=== PATIENT | male | born 1950 | race Caucasian/White ===

== ENCOUNTER 2016-09-23 07:01 | Emergency (ER) | payer MEDICARE, OTHER ==
[2016-09-23 07:16] VITALS: TEMP 97.7; BMI 27.4
[2016-09-23] MEDS ORDERED: DIPHTHERIA AND TETANUS (ADULT) 0.5 ML SYR IM ONE (07:28)
--- NOTE | 2016-09-23 07:31 | EDPRACDOC ---
<Lakisha Reardon - Last Filed: 09/23/16 09:20> - General Information Information Source: Patient, Family Mode Of Arrival: Car - History of Present Illness HPI: PATIENT STATES HE FELL FROM STANDING LAST NIGHT AND STRUCK RIGHT FOREHEAD. LACERATION TO EYEBROW. FAMILY FOUND HIM THIS MORNING SLUMPED OVER CHAIR. POSSIBLE ETOH. FAMILY FEELS PATIENT IS ALTERED. PATIENT TALKS IN SLUGGISH AND DELAYED SENTENCES. DOES NOT THINK HE HAD LOC. CANNOT REMEMBER LAST TETANUS SHOT. PATIENT IS ON PLAVIX FOR CAD - 3 CARDIAC STENTS Location: Reports: Frontal (RIGHT) Pain Quality: Reports: Mild Relevant History of: Reports: Bleeding diathesis Associated Signs and Symptoms: Denies: Fatigue, Nausea/Vomiting <Janak Colunga - Last Filed: 09/23/16 10:01> - General Information Chief Complaint: Wound Stated Complaint: FALL,HEAD LACERATION Time Seen by Provider: 09/23/16 07:21 Home Medications: Home Medications Clopidogrel Bisulfate [Plavix] 75 mg PO DAILY 02/14/16 Duloxetine HCl [Cymbalta] 60 mg PO DAILY 02/14/16 Metformin HCl 850 mg PO DAILY 02/14/16 Metoprolol Succinate [Toprol Xl] 100 mg PO DAILY 02/14/16 Omeprazole 40 mg PO DAILY 02/14/16 Tamsulosin HCl [Flomax] 0.4 mg PO DAILY 02/14/16 Tramadol HCl [Ultram] 50 mg PO Q8H 02/14/16 Aspirin [Aspirin EC] 81 mg PO DAILY 08/20/16 Clonazepam [Klonopin] 1 mg PO DAILY PRN 08/20/16 Oxycodone HCl [Oxycodone Immediate Release] 15 mg PO TID 08/20/16 Ampicillin 500 mg PO Q8 #15 capsule 08/25/16 Atorvastatin Calcium [Lipitor] 40 mg PO DAILY #30 tablet 08/25/16 Furosemide [Lasix] 20 mg PO DAILY #30 tablet 08/25/16 Isosorbide Mononitrate [Imdur] 90 mg PO 0600 #30 tablet 08/25/16 Lisinopril [Zestril] 5 mg PO BID #30 tablet 08/25/16 Prednisone [Sterapred 5 mg/6 day Uni-Pack] 21 tab PO DIR #1 pack 08/25/16 Ranolazine [Ranexa] 1,000 mg PO BID #60 tablet.er 08/25/16 Cephalexin Monohydrate [Keflex] 250 mg PO Q6H #40 cap 09/23/16 Allergies/Adverse Reactions: Allergies Allergy/AdvReac Type Severity Reaction Status Date / Time No Known Allergies Allergy Verified 08/20/16 10:37 ED Past Medical History - History Reviewed Yes Nurses notes reviewed and agree except as marked Travel Outside of [place] in the Last 3 Months?: No - Patient Medical History Cardiac History: Reports: Coronary Artery Disease, Hypertension, Heart Attack, Cardiac Catheterization, CABG, Hypercholesterolemia, Valvular Heart Disease Respiratory History: Reports: COPD, Cough, Chronic Bronchitis, Pneumonia, Emphysema GI/ History: Reports: Kidney Stones, Gastroesophageal Reflux Musculoskeletal History: Reports: Osteoarthritis Psychological History: Reports: Anxiety. Denies: Depression, Substance Use Disorder Systemic History: Reports: Diabetes (no meds, diet controlled) Surgical History: Reports: CABG, Cardiac Catheterization (STENT X3) - Family Medical History Reports: Hypertension, Diabetes (mother, sister), Cancer (brother), Stroke ( brother), Cardiac Disorders, Respiratory Disorders - Social Medical History Smoking Status: Heavy tobacco smoker (5 or more cigarettes/day or daily pipe/ cigar) Social History: Denies: Substance Use Disorder ETOH: Social Lives With: Family Lives In: Home <Janak Colunga - Last Filed: 09/23/16 10:01> EDM Review of Systems - Review of Systems ROS Negative Except as Marked: Yes All systems reviewed and were negative except as marked Constitutional: No Symptoms Reported. negative: Fever, Chills, Weakness, Fatigue, Loss of Appetite Eyes: No Symptoms Reported. negative: Redness, Blurred Vision, Double Vision, Discharge, Pain, Light Sensitive, Photophobia Ears: No Symptoms Reported. negative: Pain, Hearing Loss, Drainage, Ear Pulling Throat: No Symptoms Reported. negative: Pain, Swelling Nose: No Symptoms Reported. negative: Congestion, Bleeding, Discharge, Injection, Swelling, Deformity, Ecchymosis, Tender, Abrasion, Laceration Mouth: No Symptoms Reported. negative: Pain, Drooling Respiratory: No Symptoms Reported. negative: Cough, Brassy Cough, Barky Cough, Shortness of Breath, Wheezing, Hemoptysis Cardiovascular: No Symptoms Reported. negative: Chest Pain, Palpitations, Syncope, Edema, Orthopnea, PND, Skin Mottling, Cyanosis Gastrointestinal: No Symptoms Reported. negative: Pain, Constipation, Nausea, Vomiting, Diarrhea, Melena, Formula Intolerance Genitourinary: No Symptoms Reported. negative: Dysuria, Hematuria, Frequency, Discharge, Bleeding, Testicular Pain, Neurological: Dizziness, Other (HEAD INJURY). negative: Gait Difficulty, Headache, Numbness, Seizure, Speech Difficulty, Weakness Musculoskeletal: No Symptoms Reported. negative: Neck, Chestwall, Ribs, Back, Shoulder, Arm, Elbow, Forearm, Wrist, Hand, Pelvis, Hip, Femur, Knee, Leg, Ankle , Foot Integumentary: No Symptoms Reported. negative: Itching, Rash, Bruising, Wound Allergic/Immunologic: No Symptoms Reported. negative: Hives, Itching Hematologic: No Symptoms Reported. negative: Lymphadenopathy, Easy Bruising, Easy Bleeding Endocrine: No Symptoms Reported. negative: Weight Gain, Weight Loss Psychiatric: No Symptoms Reported. negative: Anxiety, Depression, Hallucinations, Insomnia, Suicidal <Janak Colunga - Last Filed: 09/23/16 10:01> ED Procedures - Suture/Laceration Suture #1 Right Head Wound Length (cm): 2.0 Wound's Depth, Shape: linear Wound Explored: clean Betadine Prep?: Yes Anesthesia: 1% Lidocaine Volume Anesthetic (ccs): 3 Wound Repaired With: Sutures Suture Size/Type: 4:0, nylon Number of Sutures: 11 <Lakisha Reardon - Last Filed: 09/23/16 09:20> - Physical Exam Last recorded Vital Signs: Last Vital Signs Temp 97.7 F 09/23/16 07:12 Pulse 81 09/23/16 07:12 Resp 18 09/23/16 07:12 BP 167/82 09/23/16 07:12 Pulse Ox 98 09/23/16 07:12 Oxygen Pulse Oxygen Saturation 98 O2 Device Room Air Oxygen Flow Rate Fraction of Inspired Oxygen ( FIO2) <Lakisha Reardon - Last Filed: 09/23/16 09:20> - Physical Exam Constitutional: Alert (Awake), Other (SLUGGISH TO RESPOND) Oriented to: Time, Person, Place Last recorded Vital Signs: Last Vital Signs Temp 97.7 F 09/23/16 07:12 Pulse 81 09/23/16 07:12 Resp 18 09/23/16 07:12 BP 167/82 09/23/16 07:12 Pulse Ox 98 09/23/16 07:12 Oxygen Pulse Oxygen Saturation 98 O2 Device Room Air Oxygen Flow Rate Fraction of Inspired Oxygen ( FIO2) - HEENT Head: Laceration (4 CM LACERATION RIGHT EYE BROW- JAGGED) Eye Exam: Normal (PERRL, EOMI, Sclera white) Oropharynx: Normal (Pharynx:Moist without exudate,Gums-no swelling) Tympanic Membrane: Normal ENT EAC: Normal TMJ: Normal Nose: No Symptoms Reported (septum midline) Neck: Normal (FROM, trachea at midline) - Respiratory/Cardiovascular Respiratory: Normal - CTA (BBS clear to auscultation without adventitious sounds ) Cardiovascular: Normal (RRR without murmur, gallop or rub) - GI Auscultation: Normal (NABS) Palpation: Normal (Soft,No rebound or guarding, non distended) Tenderness: Non tender Robledo's Sign: Negative - Bladder: Normal - Musculoskeletal Back: Normal (Non-Tender) Extremities: Normal (Normal tone, Pulses 2+ No cyanosis or edema, FROM) - Integumentary Skin: Warm, Dry, Other (SEE ABOVE) Lymphatics: Normal (no adenopathy) - Neurologic Memory Impaired: Long-term (SLIGHTLY POOR) Motor Function: Normal (Normal tone, Pulses 2+ No cyanosis or edema, FROM) Cranial Nerve: Normal (CN II-X11 intact sensation, strength 5/5) Cerebellar: Normal Mood Description: Normal Thought: Coherent Perception: Normal <Janak Colunga - Last Filed: 09/23/16 10:01> - Results 09/23/16 07:45 09/23/16 07:45 WBC 5.4 xk/uL (3.8-10.8) 09/23/16 07:45 RBC 3.94 xM/uL (4.70-6.10) L 09/23/16 07:45 Hgb 10.9 g/dL (14.0-18.0) L 09/23/16 07:45 Hct 32.8 % (42-52) L 09/23/16 07:45 MCV 83 fL (80-94) 09/23/16 07:45 MCH 27.7 pg (27-32) 09/23/16 07:45 MCHC 33.3 g/dl (33-36) 09/23/16 07:45 RDW 16.3 % (11.5-14.5) H 09/23/16 07:45 Plt Count 189 xk/uL (130-400) 09/23/16 07:45 MPV 8.5 fL (7.4-10.4) 09/23/16 07:45 Neut % (Auto) 63.6 % (45-76) 09/23/16 07:45 Lymph % (Auto) 23.2 % (17-44) 09/23/16 07:45 [place] % (Auto) 9.7 % (3-10) 09/23/16 07:45 Eos % (Auto) 2.3 % (0-5) 09/23/16 07:45 Baso % (Auto) 1.2 % (0-2) 09/23/16 07:45 Absolute Neuts (auto) 3.40 xk/uL (1.7-8.2) 09/23/16 07:45 Absolute Lymphs (auto) 1.24 xk/uL (0.65-4.75) 09/23/16 07:45 Sodium 136 mEq/L (137-146) L 09/23/16 07:45 Potassium 3.5 mEq/L (3.5-5.1) 09/23/16 07:45 Chloride 98 mEq/L (98-107) 09/23/16 07:45 Carbon Dioxide 27 mMOL/L (22-33) 09/23/16 07:45 Anion Gap 15 mEq/L (8-16) 09/23/16 07:45 BUN 13 MG/DL (9-20) 09/23/16 07:45 Creatinine 1.00 MG/DL (0.66-1.25) 09/23/16 07:45 Estimated GFR (MDRD) > 60 mL/min (>=60) 09/23/16 07:45 Glucose 178 MG/DL (70-99) H 09/23/16 07:45 Calculated Osmolality 266 MOs/Kg (270-290) L 09/23/16 07:45 Calcium 9.1 MG/DL (8.4-10.2) 09/23/16 07:45 Urine Opiates Screen *positive* (NEGATIVE) H 09/23/16 08:07 Ur Oxycodone Screen *positive* (NEGATIVE) H 09/23/16 08:07 Urine Methadone Screen Neg (NEGATIVE) 09/23/16 08:07 Ur Barbiturates Screen Neg (NEGATIVE) 09/23/16 08:07 Ur Tricyclics Screen Neg (NEGATIVE) 09/23/16 08:07 Ur Phencyclidine Scrn Neg (NEGATIVE) 09/23/16 08:07 Ur Amphetamines Screen Neg (NEGATIVE) 09/23/16 08:07 U Methamphetamines Scrn Neg (NEGATIVE) 09/23/16 08:07 Urine MDMA Screen Neg (NEGATIVE) 09/23/16 08:07 U Benzodiazepines Scrn *positive* (NEGATIVE) H 09/23/16 08:07 Urine Cocaine Screen Neg (NEGATIVE) 09/23/16 08:07 Ur THC Screen Neg (NEGATIVE) 09/23/16 08:07 Lab Results 09/23/16 09/23/16 09/23/16 08:07 07:45 07:45 WBC 5.4 RBC 3.94 L Hgb 10.9 L Hct 32.8 L MCV 83 MCH 27.7 MCHC 33.3 RDW 16.3 H Plt Count 189 MPV 8.5 Neut % (Auto) 63.6 Lymph % (Auto) 23.2 [place] % (Auto) 9.7 Eos % (Auto) 2.3 Baso % (Auto) 1.2 Absolute Neuts (auto) 3.40 Absolute Lymphs (auto) 1.24 Sodium 136 L Potassium 3.5 Chloride 98 Carbon Dioxide 27 Anion Gap 15 BUN 13 Creatinine 1.00 Estimated GFR (MDRD) > 60 Glucose 178 H Calculated Osmolality 266 L Calcium 9.1 Urine Opiates Screen *positive* H Ur Oxycodone Screen *positive* H Urine Methadone Screen Neg Ur Barbiturates Screen Neg Ur Tricyclics Screen Neg Ur Phencyclidine Scrn Neg Ur Amphetamines Screen Neg U Methamphetamines Scrn Neg Urine MDMA Screen Neg U Benzodiazepines Scrn *positive* H Urine Cocaine Screen Neg Ur THC Screen Neg <Lakisha Reardon - Last Filed: 09/23/16 09:20> - Results 09/23/16 07:45 09/23/16 07:45 <Janak Colunga - Last Filed: 09/23/16 10:01> <Lakisha Reardon - Last Filed: 09/23/16 09:20> Decision Time to Discharge: 09:59 - Departure Yes I personally saw and evaluated the patient. Disposition: Home Education/Counseling Given To: Patient Education/Counseling Given Regarding: Diagnosis, Treatment, Prognosis, Follow Up <ColungaJanak clay - Last Filed: 09/23/16 10:01> - Departure Condition: Good Final Diagnosis: [id number] Scalp laceration Qualifiers: Encounter type: initial encounter Qualified Code(s): S01.01XA - Laceration without foreign body of scalp, initial encounter Head contusion Qualifiers: Encounter type: initial encounter Contusion of head detail: scalp Qualified Code(s): S00.03XA - Contusion of scalp, initial encounter Instructions: Sutured Wound Care Referrals: Vikas Harry MD [Primary Care Provider] - One Week Prescriptions: Cephalexin Monohydrate [Keflex] 250 mg PO Q6H #40 cap Additional Instructions: RETURN IN 7-10 DAYS FOR SUTURE REMOVAL
[2016-09-23 08:02] LABS: AUTOMATED BASOPHIL 1.2 % (0-2); AUTOMATED EOSINOPHIL 2.3 % (0-5); AUTOMATED LYMPH 23.2 % (17-44); AUTOMATED MONOCYTE 9.7 % (3-10); AUTOMATED NEUTROPHIL 63.6 % (45-76); MPV 8.5 fL (7.4-10.4)
[2016-09-23 08:07] LABS: BLOOD UREA NITROGEN 13 MG/DL (9-20); CALCIUM 9.1 MG/DL (8.4-10.2); CALCULATED OSMOLALITY 266 MOs/Kg (270-290); CHLORIDE 98 mEq/L (98-107); GLUCOSE 178 MG/DL (70-99); SODIUM LEVEL 136 mEq/L (137-146)
[2016-09-23 08:15] LABS: ALL NEG? NO
[2016-09-23 08:22] LABS: MDMA* NEG (NEGATIVE); METHAMPHETAMINES NEG (NEGATIVE); OXYCODONE *POSITIVE* (NEGATIVE)
--- NOTE | 2016-09-23 08:35 | DIRPT ---
CLINICAL DATA: Fall from standing position with headaches and neck pain, initial encounter EXAM: CT HEAD WITHOUT CONTRAST CT CERVICAL SPINE WITHOUT CONTRAST TECHNIQUE: Multidetector CT imaging of the head and cervical spine was performed following the standard protocol without intravenous contrast. Multiplanar CT image reconstructions of the cervical spine were also generated. COMPARISON: None. FINDINGS: CT HEAD FINDINGS Bony calvarium is intact. Diffuse atrophic changes and chronic white matter ischemic changes are seen. No findings to suggest acute hemorrhage, acute infarction or space-occupying mass lesion are noted. CT CERVICAL SPINE FINDINGS Seven cervical segments are well visualized. There are changes consistent with prior fusion at C4-5 and C5-6. Multilevel facet hypertrophic changes are seen. Osteophytic changes are noted. Mild anterolisthesis of C3 on C4 is noted felt to be of a degenerative nature. No acute fracture or acute facet abnormality is noted. Surrounding soft tissues and visualized lung apices are within normal limits. IMPRESSION: CT of the head: Chronic atrophic and ischemic changes without acute abnormality. CT of the cervical spine: Postsurgical and degenerative changes without acute abnormality. Electronically Signed By: Ulises Corrigan M.D. On: 09/23/2016 08:33
[2016-09-23] MEDS ORDERED: LIDOCAINE 2% 5 ML (PRESERVATIVE FREE) VIAL INF ONE (08:48)
[2016-09-23 09:37] LABS: ETOH-MGDL < 10 mg/dL
[2016-09-23 10:08] VITALS: BP 124/74; PULSE 70
== END 2016-09-23 10:28 | disposition home or self-care (01) ==
LOC: ED 07:01
DX: S01.111A Laceration without foreign body of right eyelid and periocular area, initial encounter (principal); S00.03XA Contusion of scalp, initial encounter; W19.XXXA Unspecified fall, initial encounter; Z23 Encounter for immunization; I25.10 Atherosclerotic heart disease of native coronary artery without angina pectoris; I10 Essential (primary) hypertension; E78.00 Pure hypercholesterolemia, unspecified; J44.9 Chronic obstructive pulmonary disease, unspecified; K21.9 Gastro-esophageal reflux disease without esophagitis; F41.9 Anxiety disorder, unspecified; E11.9 Type 2 diabetes mellitus without complications; Z79.02 Long term (current) use of antithrombotics/antiplatelets; Z79.82 Long term (current) use of aspirin; Z79.899 Other long term (current) drug therapy; F17.200 Nicotine dependence, unspecified, uncomplicated
CPT/HCPCS: 12011; 70450; 72125; 80048; 80307; 85025; 90471; 90714; 99284; J2001

== ENCOUNTER 2016-10-13 13:06 | Emergency (ER) | payer MEDICARE, OTHER ==
[2016-10-13 13:20] VITALS: PULSE 80; TEMP 98; BMI 26.3
[2016-10-13 13:45] VITALS: BP 173/87
--- NOTE | 2016-10-13 13:45 | EDPRACDOC ---
- General Information Stated Complaint: BACK PAIN Time Seen by Provider: 10/13/16 13:33 Home Medications: Home Medications Clopidogrel Bisulfate [Plavix] 75 mg PO DAILY 02/14/16 Duloxetine HCl [Cymbalta] 60 mg PO DAILY 02/14/16 Metformin HCl 850 mg PO DAILY 02/14/16 Metoprolol Succinate [Toprol Xl] 100 mg PO DAILY 02/14/16 Omeprazole 40 mg PO DAILY 02/14/16 Tamsulosin HCl [Flomax] 0.4 mg PO DAILY 02/14/16 Tramadol HCl [Ultram] 50 mg PO Q8H 02/14/16 Aspirin [Aspirin EC] 81 mg PO DAILY 08/20/16 Clonazepam [Klonopin] 1 mg PO DAILY PRN 08/20/16 Oxycodone HCl [Oxycodone Immediate Release] 15 mg PO TID 08/20/16 Ampicillin 500 mg PO Q8 #15 capsule 08/25/16 Atorvastatin Calcium [Lipitor] 40 mg PO DAILY #30 tablet 08/25/16 Furosemide [Lasix] 20 mg PO DAILY #30 tablet 08/25/16 Isosorbide Mononitrate [Imdur] 90 mg PO 0600 #30 tablet 08/25/16 Lisinopril [Zestril] 5 mg PO BID #30 tablet 08/25/16 Prednisone [Sterapred 5 mg/6 day Uni-Pack] 21 tab PO DIR #1 pack 08/25/16 Ranolazine [Ranexa] 1,000 mg PO BID #60 tablet.er 08/25/16 Cephalexin Monohydrate [Keflex] 250 mg PO Q6H #40 cap 09/23/16 Cyclobenzaprine HCl [Flexeril] 10 mg PO TID #21 tab 10/13/16 Meloxicam [Mobic] 7.5 mg PO BID #20 tab 10/13/16 Allergies/Adverse Reactions: Allergies Allergy/AdvReac Type Severity Reaction Status Date / Time No Known Allergies Allergy Verified 10/13/16 13:43 - History of Present Illness Onset: ONGOING HPI: PT PRESENTS TODAY WITH AOC LOW BACK PAIN. STATES HE HAS ALREADY TAKEN ALL HIS OXYCODONE D/T INCREASE IN PAIN. NO APPARENT DISTRESS. NO NEW SYMPTOMS. Pain Location: Reports: Lumbar Pain Radiates To: Reports: None Relevant History: Reports: Chronic back pain Pain Severity: Reports: Moderate Pain Quality: Reports: Aching Worsened By: Reports: Movement Associated Signs and Symptoms: Reports: None ED Past Medical History - History Reviewed Yes Nurses notes reviewed and agree except as marked - Patient Medical History Cardiac History: Reports: Coronary Artery Disease, Hypertension, Heart Attack, Cardiac Catheterization (STENT X3), CABG, Hypercholesterolemia, Valvular Heart Disease Respiratory History: Reports: COPD, Cough, Chronic Bronchitis, Pneumonia, Emphysema GI/ History: Reports: Kidney Stones, Gastroesophageal Reflux Musculoskeletal History: Reports: Osteoarthritis Psychological History: Reports: Anxiety. Denies: Depression, Substance Use Disorder Systemic History: Reports: Diabetes (no meds, diet controlled) Surgical History: Reports: CABG, Cardiac Catheterization (STENT X3) - Family Medical History Reports: Hypertension, Diabetes (mother, sister), Cancer (brother), Stroke ( brother), Cardiac Disorders, Respiratory Disorders - Social Medical History Smoking Status: Heavy tobacco smoker (5 or more cigarettes/day or daily pipe/ cigar) Social History: Denies: Substance Use Disorder EDM Review of Systems - Review of Systems ROS Negative Except as Marked: Yes All systems reviewed and were negative except as marked Constitutional: No Symptoms Reported Respiratory: No Symptoms Reported Cardiovascular: No Symptoms Reported Gastrointestinal: No Symptoms Reported Genitourinary: No Symptoms Reported Neurological: No Symptoms Reported Musculoskeletal: Back Integumentary: No Symptoms Reported - Physical Exam Constitutional: Alert (Awake), No apparent distress Oriented to: Time, Person, Place Last recorded Vital Signs: Last Vital Signs Temp 98.0 F 10/13/16 13:17 Pulse 80 10/13/16 13:17 Resp 20 10/13/16 13:17 BP 186/104 H 10/13/16 13:17 Pulse Ox 97 10/13/16 13:17 Oxygen Pulse Oxygen Saturation 97 O2 Device Oxygen Flow Rate Fraction of Inspired Oxygen ( FIO2) - HEENT Head: Normal Eye Exam: Normal Neck: Normal, Denies Pain, Midline - Respiratory/Cardiovascular Respiratory: Normal - CTA Cardiovascular: Normal - GI Palpation: Normal Tenderness: Non tender - Musculoskeletal Back: Lumbar TTP, No Palpable Step-off Extremities: Normal - Integumentary Skin: Normal Lymphatics: Normal - Neurologic Cerebellar: Normal Mood Description: Normal Thought: Coherent Perception: Normal - Additional Information 20 DAYS AGO, I HAD SUTURED PTS HEAD FROM LACERATION FROM A FALL. ON MY ASSESSMENT THEN, PT COULD BARELY BE WOKEN AND NARCOTIC OVERDOSE WAS SUSPECTED. I EXPLAINED TO PT THAT I COULD NOT REFILL HIS MEDICATIONS AND THAT HIS OVERUSE OF HIS MEDICATIONS IS CONSIDERED ABUSE. Decision Time to Discharge: 13:43 - Departure Disposition: Home Condition: Good Final Diagnosis: Acute exacerbation of chronic low back pain, Noncompliance with medication regimen Instructions: Core Strengthening Exercises (GEN), Back Pain Education/Counseling Given To: Patient Education/Counseling Given Regarding: Diagnosis, Treatment, Follow Up Referrals: Vikas Harry MD [Primary Care Provider] - One Week Prescriptions: Cyclobenzaprine HCl [Flexeril] 10 mg PO TID #21 tab Meloxicam [Mobic] 7.5 mg PO BID #20 tab Forms: Primary / Family Care Contact Additional Instructions: PLEASE FOLLOW UP WITH PCP REGARDING NARCOTIC MEDICATION REFILLS
== END 2016-10-13 13:50 | disposition home or self-care (01) ==
LOC: EDMC 13:06
DX: M54.5 Low back pain (principal); G89.29 Other chronic pain; Z91.14 Patient's other noncompliance with medication regimen
CPT/HCPCS: 99282

== ENCOUNTER 2016-10-21 18:46 | Emergency (ER) | payer MEDICARE, OTHER ==
[2016-10-21 19:01] VITALS: BP 118/71; PULSE 120; TEMP 99.1; BMI 26.6
[2016-10-21 19:18] LABS: AUTOMATED BASOPHIL 1.1 % (0-2); AUTOMATED EOSINOPHIL 2.7 % (0-5); AUTOMATED LYMPH 18.4 % (17-44); AUTOMATED MONOCYTE 7.2 % (3-10); AUTOMATED NEUTROPHIL 70.6 % (45-76); MPV 9.1 fL (7.4-10.4)
[2016-10-21 19:29] LABS: BLOOD UREA NITROGEN 12 MG/DL (9-20); CALC CORRECTED 8.9 MG/DL (8.4-10.2); CALCIUM 8.6 MG/DL (8.4-10.2); CALCULATED OSMOLALITY 265 MOs/Kg (270-290); CHLORIDE 101 mEq/L (98-107); GLUCOSE 197 mg/dL (70-99); SODIUM LEVEL 135 mEq/L (137-146); TOTAL PROTEIN 6.7 G/DL (6.3-8.2)
[2016-10-21 20:23] LABS: PARTIAL THROMB. TIME 24.8 SEC (22-35); PT-INR 1.1
== END 2016-10-21 22:06 | disposition left against medical advice (07) ==
LOC: ED 18:46
DX: R07.9 Chest pain, unspecified (principal)
CPT/HCPCS: 80053; 83880; 84484; 85025; 85610; 85730; 99281